=== PATIENT | female | born 1980 | race African-American/Black ===

== ENCOUNTER 2018-07-01 04:05 | Emergency (ER) | payer OTHER ==
[~2018-07-01] VITALS: Ht 170.2 cm; Wt 127.0 kg
[~2018-07-01 04:05] MED LIST: ELIQUIS5 MG; FLEXERIL PO; HYDROCODONE-AP1 EAC6 PO; IBUPROFEN 800800 MG PO; IRON SUPPLEMEN325 MG PO; IRON325; IRON325 PO; KEFLEX500 MG PO; LIDOCAINE VISC100 M1 SWISH&SPIT; MEDROLDOSEPACK PO; NORCO 5-325 TA1 EACH PO; No home meds.; OMEPRAZOLE40 MG; PENICILLIN V P500 MG PO; PEPCID20 MG PO; PREDNISONE 20 M20 M1 PO; ROBAXIN 750 MG750 M1 PO; TRINATE TABLET1 TAB PO; VISTARIL 25 MG25 M1 PO
[2018-07-01] MEDS ORDERED: OMEPRAZOLE (04:16)
[2018-07-01] MEDS ORDERED: NORCO 5-325 TA1 EACH PO (05:20)
[2018-07-01] MEDS ORDERED: BACTRIM DS TAB1 EACH PO (05:20)
[2018-07-01 05:40] VITALS: BP 127/86
== END 2018-07-01 05:40 | disposition home or self-care (01) ==
LOC: M.ERS 04:05
DX: L02.215 Cutaneous abscess of perineum (principal); K21.9 Gastro-esophageal reflux disease without esophagitis; Z88.0 Allergy status to penicillin; Z88.1 Allergy status to other antibiotic agents; Z88.6 Allergy status to analgesic agent; Z86.2 Personal history of diseases of the blood and blood-forming organs and certain disorders involving the immune mechanism; Z86.718 Personal history of other venous thrombosis and embolism

== ENCOUNTER 2019-04-04 20:41 | Emergency (ER) | payer OTHER ==
[~2019-04-04] VITALS: Ht 170.2 cm; Wt 122.5 kg
[~2019-04-04 20:41] MED LIST changes: +BACTRIM DS TAB1 EACH PO; +OMEPRAZOLE
[2019-04-04] MEDS ORDERED: METFORMIN HCL500 MG PO (21:00)
[2019-04-04] MEDS ORDERED: NORCO 5-325 TA1 EAC1 PO (21:16)
[2019-04-04] MEDS ORDERED: FLEXERIL PO (21:16)
[2019-04-04] MEDS ORDERED: PREDNISONE 10 M10 MG PO (21:16)
[2019-04-04 21:38] VITALS: BP 128/95
== END 2019-04-04 22:22 | disposition home or self-care (01) ==
LOC: M.ERS 20:41
DX: M54.32 Sciatica, left side (principal); K21.9 Gastro-esophageal reflux disease without esophagitis; Z88.0 Allergy status to penicillin; Z88.1 Allergy status to other antibiotic agents; Z88.6 Allergy status to analgesic agent; Z86.2 Personal history of diseases of the blood and blood-forming organs and certain disorders involving the immune mechanism; Z86.711 Personal history of pulmonary embolism; Z86.718 Personal history of other venous thrombosis and embolism

== ENCOUNTER 2020-04-15 07:35 | Emergency (ER) | payer OTHER ==
[~2020-04-15] VITALS: Ht 167.6 cm; Wt 84.4 kg
[~2020-04-15 07:35] MED LIST changes: +METFORMIN HCL500 MG PO; +NORCO 5-325 TA1 EAC1 PO; +PREDNISONE 10 M10 MG PO
[2020-04-15] MEDS ORDERED: HYDROCODON-ACE1 EAC7 PO (08:48)
[2020-04-15] MEDS ORDERED: BACTRIM DS TAB1 EACH PO (08:48)
[2020-04-15 09:12] VITALS: BP 130/93
== END 2020-04-15 09:13 | disposition home or self-care (01) ==
LOC: M.ERS 07:35
DX: L02.215 Cutaneous abscess of perineum (principal); K21.9 Gastro-esophageal reflux disease without esophagitis; Z86.2 Personal history of diseases of the blood and blood-forming organs and certain disorders involving the immune mechanism; Z86.711 Personal history of pulmonary embolism; Z86.718 Personal history of other venous thrombosis and embolism; Z88.0 Allergy status to penicillin; Z88.1 Allergy status to other antibiotic agents; Z88.6 Allergy status to analgesic agent

== ENCOUNTER 2020-08-27 22:07 | Emergency (ER) | payer OTHER ==
[~2020-08-27] VITALS: Ht 167.6 cm; Wt 119.8 kg
[~2020-08-27 22:07] MED LIST changes: +HYDROCODON-ACE1 EAC7 PO
[2020-08-27] MEDS ORDERED: CALCIUM500 MG PO (22:18)
[2020-08-27 22:23] LABS: URINE BLOOD TRACE (Negative); URINE CLARITY CLEAR; URINE COLOR YELLOW; URINE GLUCOSE-RANDOM NEGATIVE (Negative); URINE KETONES TRACE (Negative); URINE LEUKOCYTES-REFLEX NEGATIVE (Negative); URINE NITRITE-REFLEX NEGATIVE (Negative); URINE PROTEIN 1+ (Negative); URINE SPECIFIC GRAVITY >= 1.030 (1.005-1.030); URINE UROBILINOGEN 0.2 E.U./dl (0.2-1.0)
[2020-08-27 22:24] LABS: ICTOTEST (BILI CONFIRMATORY) Negative (Negative); URINE BILIRUBIN 1+ (Negative)
[2020-08-27 22:44] LABS: HEMATOCRIT 40.3 % (37.0-47.0); HEMOGLOBIN 12.5 gm/dL (12.0-15.0); MCH 24.9 pg (26.0-34.0); MCV 80.3 fL (80.0-100.0); MPV 7.2 fl. (7.2-11.1); NUCLEATED RBCS 0 /100WBC; PLATELET COUNT* 361 thou/uL (150-400); RBC 5.01 mil/uL (4.20-5.00); RDW-CV 16.6 % (10.5-14.5); WBC 21.2 thou/uL (4.0-11.0)
[2020-08-27 23:05] LABS: CALCIUM 8.8 mg/dL (8.5-10.1); CREATININE 0.9 mg/dL (0.6-1.3); POTASSIUM 3.8 mmol/L (3.5-5.1)
[2020-08-27 23:09] LABS: ALBUMIN 2.8 g/dL (3.4-5.0); TOTAL BILIRUBIN 0.3 mg/dL (<0.1-1.0); TOTAL PROTEIN 7.5 g/dL (6.4-8.2)
[2020-08-27 23:35] LABS: ABSOLUTE EOSINOPHILS 0.2 thou/uL (0.0-0.7); ABSOLUTE LYMPHOCYTES 1.9 thou/uL (0.8-5.3); ABSOLUTE MONOCYTES 1.1 thou/uL (0.0-1.2); ANISOCYTOSIS Occasional; PLATELET ESTIMATE ADEQUATE; TOXIC GRANULATION 2+
[2020-08-28] MEDS ORDERED: CARAFATE 1 GM TA1 GM PO (00:55)
[2020-08-28] MEDS ORDERED: PROTONIX40 M2 PO (00:55)
[2020-08-28] MEDS ORDERED: REGLAN10 MG PO (00:56)
[2020-08-28] MEDS ORDERED: PERCOCET 5-3251 EACH PO (00:56)
[2020-08-28 01:07] VITALS: BP 141/91
== END 2020-08-28 01:07 | disposition home or self-care (01) ==
LOC: M.ERS 22:07
PROVIDERS: Emergency Medicine
DX: K80.20 Calculus of gallbladder without cholecystitis without obstruction (principal); K20.90 Esophagitis, unspecified without bleeding; Z20.828 Contact with and (suspected) exposure to other viral communicable diseases; K21.9 Gastro-esophageal reflux disease without esophagitis; Z88.0 Allergy status to penicillin; Z88.1 Allergy status to other antibiotic agents; Z88.6 Allergy status to analgesic agent; Z86.2 Personal history of diseases of the blood and blood-forming organs and certain disorders involving the immune mechanism; Z86.711 Personal history of pulmonary embolism; Z86.718 Personal history of other venous thrombosis and embolism